=== PATIENT | female | born 1950 | race Caucasian/White ===

== ENCOUNTER 2022-06-28 07:52 | Outpatient (CLI) | payer MEDICARE, BC, SELFPAY | END 2022-06-28 07:53 | disposition home or self-care (01) | PROVIDERS: PCP Family Medicine; Visit Provider Family Medicine | DX: M54.16 Radiculopathy, lumbar region (principal); M51.36 Other intervertebral disc degeneration, lumbar region | CPT/HCPCS: 64483; J1100; Q9966 ==

== ENCOUNTER 2024-01-01 06:33 | Day surgery (SDC) | payer MEDICARE, BC, SELFPAY ==
[2024-01-01] VITALS (7 sets, daily range): BP systolic 122–146; BP diastolic 55–65; PULSE 66–77; RESP 16–18; TEMP 36.4–36.6; O2SAT 97–100; BMI 28.6
[2024-01-01] MEDS: BUPIVACAINE 0.5% 30 ML INJECTION (06:55)
[2024-01-01] MEDS: ETHYL CHLORIDE 1 APPLICATION 1 APPLIC TOPICAL (06:55)
--- NOTE | 2024-01-01 07:41 | SUR.PREOP ---
SAME DAY SURGERY LOCAL INJECTION SITE VERIFICATION WAS PERFORMED BY SURGEON/PA AND PATIENT PRIOR TO LOCAL ANESTHETIC BEING INJECTED TO OPERATIVE SITE.
[2024-01-01] MEDS: BACITRACIN OINTMENT BULK TUBE 1 APPLIC TOPICAL (07:45)
--- NOTE | 2024-01-01 08:00 | P.ORPRC_ITS ---
Procedure Note Date of procedure: 01/01/24 Procedure: PREOPERATIVE DIAGNOSIS: 1. Right carpal tunnel syndrome POSTOPERATIVE DIAGNOSIS: 1. Right carpal tunnel syndrome PROCEDURE: 1. Right open carpal tunnel release SURGEON: Rick Curiel MD. UTILITIES ESTIMATOR AND DRAFTER: Amalia Montoya PA-C ANESTHESIA: Local anesthetic (50:50 mixture of 1% lidocaine with epi and 0.5% marcaine plain) - 10ml total IMPLANTS: None EBL: 2 mL TOURNIQUET: None COMPLICATIONS: None evident INDICATIONS: The patient is a pleasant 73-year-old female who has experienced right hand numbess/tingling affecting the radial 3.5 digits for multiple months. It has progressively gotten worse. Nonoperative management has been tried and failed, and therefore surgery was recommended. DESCRIPTION OF PROCEDURE: Following a thorough discussion of risks, benefits, and alternatives consent was obtained and the operative extremity was marked. The patient was brought to the operating room and placed supine on the operating table. Local anesthesia induction was undertaken in preop holding. No antibiotics were administered as this was planned to be a local case only. Proper time-out was performed identifying proper patient, site, and procedure. The operative extremity was prepped and draped in the appropriate sterile fashion using ChloraPrep. An incision was made in line with the radial border of the ring finger beginning 1 cm distal to the distal wrist crease and progressing for another 2.5cm distal. Caution was taken to stay proximal to Zamarripa's cardinal line. Sharp incision through the skin, subcutaneous tissue, and palmar fascia was performed. The thenar musculature was bluntly elevated off the transverse carpal ligament. The ligament was directly visualized, and divided sharply with a 15 blade. This was released from its most proximal to the most distal extent. Metzenbaum scissor was also utilized to release the fascia extension proximally. We confirmed complete release of the transverse carpal ligament. Closure was performed with 4-O nylon in interrupted fashion. Soft dressings were applied, and the patient was transferred to the recovery room in stable condition. PLAN: 1. Encourage elevation of the operative extremity. 2. Range of motion of the fingers and hand/wrist as tolerated. 3. Ibuprofen/acetaminophen and/or oxycodone as needed for pain control. 4. Follow up with PA visit or nurse visit in 12-16 days for wound check and suture removal.
== END 2024-01-01 08:07 | disposition home or self-care (01) ==
PROVIDERS: PCP Family Medicine; Visit Provider Orthopaedic Surgery Sports Medicine
PROC: (CPT 64721; principal; 2024-01-01 07:30)
DX: G56.01 Carpal tunnel syndrome, right upper limb (principal)
CPT/HCPCS: 64721; J0665

== ENCOUNTER 2024-02-06 08:25 | Outpatient (CLI) | payer MEDICARE, BC, SELFPAY | END 2024-02-06 08:26 | disposition home or self-care (01) | LOC: INJ CL 08:26 | PROVIDERS: PCP Family Medicine; Visit Provider Family Medicine | DX: M54.16 Radiculopathy, lumbar region (principal); M51.36 Other intervertebral disc degeneration, lumbar region | CPT/HCPCS: 64483; J1100; Q9966 ==

== ENCOUNTER 2024-05-07 08:03 | Outpatient (CLI) | payer MEDICARE, BC, SELFPAY | END 2024-05-07 08:04 | disposition home or self-care (01) | LOC: INJ CL 08:03 | PROVIDERS: PCP Family Medicine; Visit Provider Family Medicine | DX: M54.16 Radiculopathy, lumbar region (principal); M51.369 Other intervertebral disc degeneration, lumbar region without mention of lumbar back pain or lower extremity pain | CPT/HCPCS: 64483; 64484; J1100; Q9966 ==

== ENCOUNTER 2025-03-19 21:00 | Emergency (ER) | payer MEDICARE, BC, SELFPAY ==
[2025-03-19] VITALS (23 sets, daily range): BP systolic 124–159; BP diastolic 68–92; PULSE 79–109; RESP 12–19; TEMP 36.6; O2SAT 93–98; BMI 28.3
--- OUTSIDE RECORDS SUMMARY | 2025-03-19 21:02 | XMS_ITS | Clinical Summary ---
Author Organization [facility] Address [address] , [address] [place] [address] Phone Care Team Providers Care Steel Checker Name Role Phone [facility] Unavailable Unava ilable Conditions or Problems Problem Name Problem Code Onset Date Status Entry Date Provider Comment Standard Description Annotate Tingling, hand of Rt side [id number] (SNOMED CT) Active Jean Claude Negron MD Tingling of skin Medications No information available. Medications Administered No information available. Allergies, Adverse Reactions, Alerts No information available. Results Date Name Value Unit Range Flag Description Internal Other: Authorizatio n - OBS [email or web address] Yes Authoriza tion: Release of Information - Authorize [facility] - Payment and Healthcare Operations ROIAUTHOTHER Yes Authoriz ation: Release of Information - Authorize Others/Insurance - Payment and Healthcare Operations HIECONSENT Yes Consent To Release information to the Health Information Exchange (HIE) [email or web address] Yes Authorizat ion: Authorization for [facility] to leave messages, voicemail, send text messages, send emails AUTHRELHCARE Yes Authoriz ation: Release/Retrieval of Information to/from Healthcare Facilities, Pharmacy Benefit Payers and Providers AUTHPRIVPRAC Yes Authoriz ation: Notice of privacy practices AUTHBENEFIT Yes Authoriza tion: Assignment of Benefits and Payment Agreement Plan of Care No information available. Procedures Code Procedure Name Date Entry Date CPT-94077 Nerve Conduction 5-6 studies CPT-28832 EMG with NCS (5+ muscles) - 1 limb 12/0731 Vital Signs No information available. Immunizations No information available. Advance Directives No information available.
--- OUTSIDE RECORDS SUMMARY | 2025-03-19 21:03 | XMS_ITS | Clinical Summary ---
Author Organization [facility] Address [address] [place] [id number] Care Team Providers Care Police Patrol Lieutenant Name Role Phone Elissa Quezada MD Primary Care Provide r Allergies Active Allergy Reactions Criticality Noted Date Comments Dust Mites Other - Describe In Comment Field 06/18/2008 Nasal congestion Mold Extracts Other - Describe In Comment Field 06/18/2008 Nasal congestion Oxycodone-Acetaminoph en Nausea Only 05/12/2020 Medications cholecalciferol (VITAMIN D) 1,000 unit capsuleIndication s:Vitamin D deficiency Take 2 capsules by mouth once daily. 0 07/26/19 17 Active Blood Pressure Monitor KitIndications:HT N (hypertension) Automatic arm cuff, large adult cuff Frequency of testin-3 times per week 1 Each 05/10/20 22 Active blood-glucose meterIndications: Type 2 diabetes mellitus with complication, without long-term current use of insulin (HC) Test once daily. Dispense meter, test strips, lancets covered by pt ins. E11.8 1 Each 11/14/19 24 Active multivitamin (MVI) tablet Take 1 Tablet by mouth once daily. 03/13/20 24 Active medication order composer Colace as needed 03/13/20 24 Active medication order composer Magnesium supplement 03/13/20 24 Active aspirin (ECOTRIN) 81 mg enteric coated tabletIndications :H/O TIA (transient ischemic attack) and stroke Take 1 Tablet (81 mg) by mouth once daily with a meal. 07/08/20 24 Active gabapentin 100 mg capsuleIndication s:Lumbar radiculopathy TAKE ONE CAPSULE (100MG) BY MOUTH TWICE A DAY NEEDED FOR NERVE PAIN DURING THE DAY IN ADDITION TO THE 600MG AT BEDTIME 60 Capsule 11/30/19 Active sennosides-docusa te (8.6-50 mg) tabletIndications :Chronic constipation Take 1 Tablet by mouth once daily if needed for Constipation. 90 Tablet 11/29/19 Active atorvastatin 40 mg tabletIndications :Diabetes mellitus without complication (HC) Take 1 Tablet (40 mg) by mouth once daily. 90 Tablet 11/29/19 Active metFORMIN 500 mg tabletIndications :Type 2 diabetes mellitus with complication, without long-term current use of insulin (HC) Take 2 Tablets (1,000 mg) by mouth two times daily with meals. 360 Tablet 11/29/19 Active semaglutide (Ozempic) 2 mg/dose (8 mg/3 mL) subcutaneous penIndications:Co ntrolled type 2 diabetes mellitus without complication, without long-term current use of insulin (HC) Inject 2 mg subcutaneous once weekly. 3 mL 11/29/19 Active Blood Sugar Diagnostic, Disc stripIndications: Diabetes mellitus without complication (HC) As directed. Test 1 times per day 100 Each 11/29/19 Active lisinopriL 40 mg tabletIndications :HTN (hypertension) Take 1 Tablet (40 mg) by mouth once daily. 90 Tablet 11/29/19 Active hydroCHLOROthiazi de 12.5 mg tabletIndications :HTN (hypertension) Take 1 Tablet (12.5 mg) by mouth once daily. 90 Tablet 11/29/19 Active lancetsIndication s:Type 2 diabetes mellitus without complication, with long-term current use of insulin (HC) As directed. Test 1 times per day. 100 Each 11/30/19 Active gabapentin 600 mg tabletIndications :Lumbar radiculopathy Take 1 Tablet (600 mg) by mouth at bedtime. 30 Tablet 12/17/19 Active blood sugar diagnostic (Contour Next Test Strips) stripIndications: Type 2 diabetes mellitus without complication, with long-term current use of insulin (HC) Dispense item covered by pt ins. E11.9 NIDDM type II - Test 1 time/day 100 Each 01/23/20 25 Active ketoconazole 2 % creamIndications: Tinea pedis, unspecified laterality Apply topically to affected area(s) two times daily. 60 g 2 01/21/20 25 Active cyclobenzaprine (FLEXERIL) 10 mg tabletIndications :Back spasm Take 1 Tablet (10 mg) by mouth 3 times daily if needed for Muscle Spasm. 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 Type II or unspecified type diabetes mellitus without mention of complication, not stated as uncontrolled 09/15/2006 Other and unspecified hyperlipidemia 09/15/2006 Depressive disorder, not elsewhere classified Resolved Problems Problem Noted Date Diagnosed Date Resolved Date Disturbance of skin sensation 03/20/2008 11/10/2015 Headache(784.0) 09/15/2006 11/10/2015 Encounters Date Type Department Care Team Description 03/19/2025 Travel 03/18/2025 Telephone [facility] [address] [place], [place] [id number] Elissa Quezada MD Medication Management (cyclobenzaprine (FLEXERIL) 10 mg ) 02/06/2025 11:00 AM CDT Procedure Only Counts Include [facility] [address] [address] Jaelyn Dubois MD Derm Problem 02/06/2025 Travel 02/01/2025 Travel 01/30/2025 12:00 PM CDT Office Visit [address] [phone] Jairo White MD Procedure (Lesion removal - left ear) 01/30/2025 Telephone [facility] [address] [place] [address] Jairo White MD Pharmacist Medication Management (NEOMYCIN) 01/30/2025 Travel 01/27/2025 10:40 AM CDT Office Visit [facility] [address] [place] [address] Leon Dorsey MD Musculoskeletal Problem (Follow up back and right leg pain) 01/27/[address] [address] Jaelyn Dubois MD Appointment (DERM); Diabetes (Jerrod nordisk) 01/27/2025 Telephone [facility] [address] [place] [address] Elissa Quezada MD Concerns 01/27/2025 Travel 01/25/2025 Travel 01/23/2025 2:15 PM CDT Office Visit [address] [phone] Jairo White MD Consult (Skin lesion of left ear / Decreased hearing of /both ears /) 01/23/2025 1:00 PM CDT Office Visit [address] [phone] Trini Catherine AuD Hearing Problem (Hearing test - deferred) 01/23/2025 Telephone Counts Include [facility] [address] [address] Jaelyn Dubois MD Abnormal Lab Results 01/20/2025 10:30 AM CDT Office Visit [address] [address] Jaelyn Dubois MD Derm Problem 01/20/2025 Travel 01/20/2025 Refill [facility] [address] [place] [address] Elissa Quezada MD Refill Request 01/18/2025 Travel 01/15/2025 Travel from Last 3 Months Immunizations Immunization Administration Dates Next Due COVID-19 VACCINE SPIKEVAX (M ODERNA 50MCG/0.5ML) 12YO+ PFS 10/28/2023,04/24/2023 COVID-19 vaccine (Moderna 10 0mcg/0.5mL) PF, MDV 05/11/2021,10/08/2020,09/10/2020 Hepatitis A (Adult) 09/24/2009,08/28/2008 Hepatitis B (Adult) 06/13/1989,01/13/1989,1988 Influenza A (H1N1), Inactivated 05/20/2009 Influenza A (H1N1), Inactiva beni (Age >=3 Years) 05/08/2010,05/10/2009 Influenza RIV4 (Age 18+ Year s) PRESERV FREE 05/16/2019 Influenza Virus, Unspecified 05/07/2012,04/25/20 11,05/17/2010 Influenza, High-dose Inactivated 04/23/2017,04/09,05/07/2015 Influenza, High-dose Quadriv alent Inactivated 04/24/2021 Influenza, IIV3 (Age 6-35 mos) 04/24/2013 Influenza, IIV3 (Age >=3 years) 05/10/2014,04/24,04/07/2009 Influenza, IIV4 04/21/2016 Influenza, Inactivated AIIV4 (Age 65+ Years) Preserv Free 04/25/2022,05/08/2020 Influenza, Inactivated IIV3 (Age 65+ Years) Preserv Free 05/24/2024,05/04/2018 Pneumococcal Poly,23-Valent (Pneumovax) 10/26/19 17,08/28/2008,11/21/1994 Pneumococcal conj 13-Valent (Prevnar 13) 015 RSV, Recombinant ADJ Reconst ituted (Arexvy 120MCG/0.5mL) 06/10/2024 Td (Age >=7 Years) 01/27/2004 Tdap 10/30/2022,10/15/2012 10/11/2022 Typhoid (injectable) 11/18/2005 Zoster (Shingrix-RZV, recombinant) 01/25/2023, Zoster (Zostavax-ZVL, live) 02/01/2012 Family History Medical History Relation Name Comments Diabetes Father Heart Disease Father [place] age 54 Hyperlipidemia Father Diabetes Mother Cancer Other cousin Cancer Sister 1 cervical Diabetes Sister 2 Age 54 Cancer-breast No Family History Cancer-ovarian No Family History Relation Name Status Comments Father Mother Other Sister 1 Sister 2 Social History Tobacco Use Types Packs/Day Years Used Date Smoking Tobacco: Former Cigarettes 1 12 0 07/10/1971 - 07/10/1983 Passive Smoke Exposure: Past Smokeless Tobacco: Never Tobacco Cessation:Counseling Given: Yes Alcohol Use Standard Drinks/Week Comments Yes 0 (1 standard drink = 0.6 oz pur e alcohol) 1 X /month or social occasions PHQ-2 Answer Date Recorded PHQ-2 TOTAL SCORE 0 11/28/2024 Social Connections Answer Date Recorded Do you often feel lonely or isolated from those around you? 0 11/28/2024 Financial Resource Strain Answer Date R ecorded Difficulty of Paying Living Expenses 3 11/28/2024 Difficulty of Paying Living Expenses Not on file 11/28/2024 Food Insecurity Answer Date Recorded Do you worry your food will run out before you are able to buy more? 1 11/28/2024 Transportation Needs Answer Date Record ed Does lack of transportation keep you from medica l appointments? 1 11/28/2024 Does lack of transportation keep you from work, meetings or getting things that you need? 1 11/28/2024 Housing Stability Answer Date Recorded What is your housing situation today? 1 11/28/2024 Utilities Answer Date Recorded Do you have trouble paying f or utilities (for example, heat, electricity, water, phone)? 1 11/28/2024 Comments No Sex and Gender Information Value Date Recorded Sex Assigned at Not on file Legal Sex Female 5:27 AM CCNP Gender Identity Not on file Sexual Orientation Not on file Occupation Industry Job Start Date Job End Date Not on file Not on file Not on file Not on file Obstetrics History Para Term AB IAB SAB Ectopic Multiple Livin g Live Births 3 3 3 3 Date Outcome GA Total Labor Labor/2nd/3rd Weight Sex Type Anes PTL Carol Ann A1 A5 Name Clin Term Term Term Last Filed Vital Signs Vital Sign Reading Time Taken Comments Blood Pressure 114/68 01/27/2025 10:47 AM CDT Pulse 69 01/27/2025 10:47 AM CDT Temperature 36.7 C (98.1 F) 01/27/2025 10:47 AM CDT Respiratory Rate 18 05/18/2020 4:14 PM CCNP Oxygen Saturation 99% 01/27/2025 10: 47 AM CDT Inhaled Oxygen Concentration - - Weight 78.3 kg (172 lb 9.6 oz) 01/28/20 10:47 AM CDT sandals on Height 165.1 cm (5' 5) 11/28/2024 2:02 PM CDT Body Mass Index 28.72 11/28/2024 2:02 PM CDT Plan of Treatment Upcoming Encounters Date Type Department Care Team (Late st Contact Info) Description 03/21/2025 8:25 AM CDT Office Visit [facility] [address] [place] [address] Elissa Quezada MD [address] [place] [address] 04/03/2025 1:30 PM CDT Office Visit [address] [phone] Jairo White MD [address] [facility] [address] [place] [address] 07/23/2025 11:00 AM CCNP Office Visit Counts Include [facility] At [facility] [address] [phone] [place] [address] [place] [address] Health Maintenance Due Date Last Done Comments Hepatitis C screening for ag e 18-79 11/13/1968 Influenza Vaccine (#1) 2025 4, 04/25/2022, 05/08/2020, Additional history exists BMI (ht and wt on same day) for age 18+ 11/28/2025 11/28/2024, 03/28/2024, 01/18/2024, Additional history exists Depression screening for age 12+ 11/28/2025 11/28/2024, 11/16/2023, 11/14/2023, Additional history exists Medicare Wellness for age 65+ 11/29/2025, 11/14/2023, 11/08/2022, Additional history exists Colonoscopy through age 75 09/06/202609/06, 09/06/2019, 09/02/2014, Additional history exists Lipids for age 45-75 11/28/2029 11/28/2024, 11/14/2023, 11/04/2022, Additional history exists Tetanus booster 10/30/2032 10/30/2022, 04/02/2013, 01/27/2004 Hepatitis B series for 19+ Completed 06/13, 01/13/1989, 12/12/1988 DEXA/DXA scan for age 65+ Completed 08/01/2016 Pneumococcal series for age 50+ Completed 10/25/2016, 05/07/2015, 08/28/2008, Additional history exists Zoster (shingles) series for age 50+ Completed 01/25/2023, 08/09/2022, 02/01/2012 RSV vaccine for adults or Completed 06/10/2024 COVID-19 vaccine series Completed 01/24/20, 04/17/2024, 10/28/2023, Additional history exists Medical Devices Implanted Type Area Filemaker Developer Device Identifier Shelf Expiration Date Model / Serial / Lot [id number] Matrix 3cc Damian Dbf Putty Dbm Implanted:Qty: 1 on 05/13/2020 by Damián Nair MD at [facility] Explanted:at [facility] (Quantity not on file) N/A: Spine Medtronic Spine/Ortho 02/18/2022 [id number] / [id number] / [id number] ne 1-4mm 30cc Medtronic Chips Canclls Freeze Dried Implanted:Qty: 1 on 05/13/2020 by Damián Nair MD at [facility] Explanted:at [facility] (Quantity not on file) N/A: Spine Medtronic Spine/Ortho 11/06/2024 [id number] / [id number] / [place] Lmbr 40x5.5mm Vitality Cvd Titnm - [id number] Implanted:Qty: 2 on 05/13/2020 by Damián Nair MD at [facility] N/A: Spine Ori Biomet Spine [id number] 05# / / Spacer Lmbr [id number] Zyston Convex Stra Plif - [id number] Implanted:Qty: 1 on 05/13/2020 by Damián Nair MD at [facility] N/A: Spine Ori Biomet 07/09/2025 [id number] / / [id number] Set Screw Lmbr 5.5-6mm Vitality Torque - [id number] Implanted:Qty: 4 on 05/13/2020 by Damián Nair MD at [facility] N/A: Spine Ori Biomet Spine [id number] 01# / / Screw Vital Polyaxial [id number] Implanted:Qty: 4 on 05/13/2020 by Damián Nair MD at [facility] N/A: Spine [id number] / / Description:SCREW VITAL POLY AXIAL [id number] Procedures Procedure Name Priority Date/Time Associated Diagnosis Comments PATH TISSUE EXAM Routine 02/06/2025 11:0 0 AM CDT Basal cell carcinoma (BCC) of skin of right upper extremity including shoulder PATH TISSUE EXAM Routine 01/30/2025 12:2 4 PM CDT Lesion of ear canal PATH TISSUE EXAM Routine 01/20/2025 10:5 0 AM CDT Neoplasm of uncertain behavior LIPID PANEL W REFLEX MEASURED LDL Routine 11/28/2024 3:00 PM CDT Type 2 diabetes mellitus with complication, without long-term current use of insulin (HC) COLONOSCOPY 09/06/2019 9:23 AM CCNP XR DXA BONE DENSITY 2 SITES AXIAL Routine 08/01/2016 2:21 PM CCNP Asymptomatic postmenopausal state from Last 3 Months or Most Recently Relevant to Health Maintenance Results * PATH TISSUE EXAM (02/06/2025 11:00 AM CDT) Only the most recent of3 resultswithin the time period is included. Case Report Pathology Report Case: [id number] Authorizing Provider: Jaelyn Dubois MD Collected: 02/06/2025 1100 Ordering Location: Counts Include [facility] Received: 02/06/2025 [facility] Pathologist: Mazin Barajas Jr., MD Specimen: Skin, right upper arm 02/11/2025 10:41 AM CDT [facility] Final Diagnosis SKIN, RIGHT UPPER ARM, RE-EXCISION: 1. Changes of prior biopsy 2. No residual carcinoma identified 02/11/2025 10:41 AM CDT [facility] at 1041 CDT Clinical Information Re-excision of BCC ([id number]) 02/11/2025 10:41 AM CDT [facility] Gross Description A) Received in formalin, labeled with the patient's name and right upper arm, is a 2.2 x 1.2 x 0.6 cm un-oriented skin ellipse. There is a 0.6 x 0.6 cm pale-irby scar, 0.3 cm from the nearest peripheral skin edge. The specimen is inked orange, is serially sectioned and entirely submitted: 1. Tips 2-3. Mid cross-sections [facility] 02/07/2025 02/11/2025 10:41 AM CDT [facility] Microscopic Description The final diagnosis is based on microscopic examination of appropriate sections of all specimens. The presence of orange ink is confirmed on tissue sections. 02/11/2025 10:41 AM CDT [facility] Additional Information Interpreted at [facility] - [address], [place] [address] 02/11/2025 10:41 AM CDT [facility] Other SPECIMEN FROM SKIN / Unknown Non-Blood / Unknown 02/06/2025 11:00 AM CDT 02/06/2025 3:01 PM CDT us Jaelyn Dubois MD PATHOLOGY/CYTOLOGY Final Result [facility] [address] [place] [address], [place] * (ABNORMAL) LIPID PANEL W REFLEX MEASURED LDL (11/28/2024 3:00 PM CDT) CHOLESTEROL, TOTAL 155 <200 mg/dL [facility] HDL CHOLESTEROL 52 > OR = 50 mg/dL [facility] TRIGLYCERIDES 157(H) <150 mg/dL [facility] LDL-CHOLESTEROL 78 mg/dL (calc) [facility] Comment: Reference range: <100 Desirable range <100 mg/dL for primary prevention; <70 mg/dL for patients with CHD or diabetic patients with > or = 2 CHD risk factors. LDL-C is now calculated using the Hermes-Spring calculation, which is a validated novel method providing better accuracy than the Friedewald equation in the estimation of LDL-C. Hermes JIMENEZ et al. JEFFREY. 2013;310(19): 2974-3149 (http://education.[employer].Votigo/faq/VTU543) CHOL/HDLC RATIO 3.0 <5.0 (calc) [facility] NON HDL CHOLESTEROL 103 <130 mg/dL (calc) [facility] Comment: For patients with diabetes plus 1 major ASCVD risk factor, treating to a non-HDL-C goal of <100 mg/dL (LDL-C of <70 mg/dL) is considered a therapeutic option. Blood BLOOD SPECIMEN / Unknown 11/28/2024 3:00 PM CDT 11/28/2024 3:02 PM CDT Narrative [facility] - 11/29/2024 3:19 AM CDT FASTING:NO FASTING: NO Elissa Quezada MD CHEMISTRY Final Result [facility] [address] [place] [address], [place] [phone] [facility] [address] [place] [address] * COLONOSCOPY (09/06/2019 9:23 AM CCNP) 09/06/2019 9:23 AM CCNP Narrative Transcriptions Hermes Salmon MD - 09/06/2019 10:34 AM CST Patient Name: Simran Aburto Procedure Date: 09/06/2019 Gender: Female Date of : 1950 Admit Type: Outpatient Procedure: Colonoscopy Proceduralist: Hermes Salmon MD , Renetta Curran RN (Nurse), Catarina Irby (Nurse) Indications/Pre-Op Diagnosis: Surveillance: Personal history ofadenomatous polyps on last colonoscopy 5 years ago, Last colonoscopy: August 2014 Medications: Fentanyl 150 micrograms IV, Midazolam 4 mgIV Procedure Description: The patient had risks, benefits and alternatives explained to andgave informed consent. The patient had a stable cardiopulmonary status and judged an adequate candidate for conscious sedation. The Colon -80DC [id number] was passed through the anus and advancedto the cecum, identified by appendiceal orifice and ileocecal valve. The colonoscopy was performed without difficulty. The patient toleratedthe procedure well. The quality of the bowel preparation was good. The ileocecal valve, appendiceal orifice, and rectum were photographed. Complications: No immediate complications. Estimated Blood Loss & Specimen: Estimated blood loss: none. Specimen collected - Yes and sent to Laboratory Findings: The perianal and digital rectal examinations were normal. Two sessile polyps were found in the ascending colon. The polyps were3 mm in size. These polyps were removed with a hot snare. Resection and retrieval were complete. The colon (entire examined portion) was significantly redundant. The exam was otherwise without abnormality on direct and retroflexion views. Impressions/Post-Op Diagnosis: - Two 3 mm polyps in the ascending colon, removed with a hot snare. Resected and retrieved. - Redundant colon. - The examination was otherwise normal on direct and retroflexionviews. Recommendation: - Patient has a contact number available for emergencies. The signsand symptoms of potential delayed complications were discussed with the patient. Return to normal activities tomorrow. Written discharge instructions were provided to the patient. - Resume previous diet. - Continue present medications. - Await pathology results. - Repeat colonoscopy in 7 years for surveillance. Moderate Sedation: Moderate (conscious) sedation was administered by the endoscopy nurse and supervised by the endoscopist. The following parameters were monitored: oxygen saturation, heart rate, respiratory rate, blood pressure, adequacy of pulmonary ventilation and reponse to care. [facility] flow[facility] and nursing notes for moderate sedation details. Total physician intraservice time was 34 minutes. Hermes Salmon MD 09/06/2019 10:34:27 AM This report has been signed electronically. Note Initiated On: 09/06/2019 9:23 AM Procedure Code(s): --- Professional --- 60010, Colonoscopy, flexible; with removalof tumor(s), polyp(s), or other lesion(s) bysnare technique Diagnosis Code(s): --- Professional --- Z86.010, Personal history of colonicpolyps D12.2, Benign neoplasm of ascending colon Q43.8, Other specified congenitalmalformations of intestine CPT copyright 2018 [employer]. All rights reserved. The codes documented in this report are preliminary and upon grommet machine operator reviewmay be revised to meet current compliance requirements. Scope In: 9:57:11 AM Scope Withdrawal Time 0 hours 7 minutes 35 seconds Scope Out: 10:28:03 AM us Hermes Salmon MD PROCEDURE ORD Final Res ult * XR DXA BONE DENSITY 2 SITES AXIAL (08/01/2016 2:21 PM CCNP) Anatomical Region Laterality Modality Spine, HIPS, HIPL, HIPR Other Narrative 08/08/2016 11:04 AM CCNP Please see scanned document for results of this study. us Elissa Quezada MD DEXA Final Result from Last 3 Months or Most Recently Relevant to Health Maintenance Insurance [place] BLUE HB ONLY MEDICARE PART A HB ONLY BLUE [place] BLUE MR PB ONLY MEDICARE PART B HB [place] [address] CALVIN MENDEZ Advance Directives Documents on File Type Date Recorded Patient Graphotype Operator Expl anation Healthcare Directive 06/15/2017 017 * Full Code (Latest Code Status on File) Date Activated Date Inactivated Comments 05/13/2020 11:54 PM 05/18/2020 8:43 PM Question Answer Comments Code Status Discussion: Discussed Care Teams Police Patrol Lieutenant Relationship Specialty Start Date End Date Elissa Quezada MD [address] [place] [address] PCP - General Family Practice 06/09/14
--- NOTE | 2025-03-19 21:27 | CRLHL7_ITS ---
For Patients: As a result of the Cures Act, medical imaging exams and procedure reports are released immediately into your electronic medical record. You may view this report before your referring provider. If you have questions, please contact your health care provider. Indication: Shoulder pain Technique: Two views of the chest Comparison: None Findings/Impression: Suspected basilar scarring with no acute cardiopulmonary process detected. Dictated by Ricardo Hare MD @ 03/19/2025 10:41:15 PM (Electronically Signed)
--- OUTSIDE RECORDS SUMMARY | 2025-03-19 21:34 | XMS_ITS | Clinical Summary ---
Author Organization [facility] Address [address] , [address] [place] [address] Phone Care Team Providers Care Commissioning Engineer Name Role Phone [facility] Unavailable Unava ilable Conditions or Problems Problem Name Problem Code Onset Date Status Entry Date Provider Comment Standard Description Annotate Tingling, hand of Rt side [id number] (SNOMED CT) Active Jean Claude Negron MD [...] Procedures Code Procedure Name Date Entry Date CPT-62752 Nerve Conduction 5-6 studies CPT-37011 EMG with NCS (5+ muscles) - 1 limb 12/0731 Vital Signs No information available. Immunizations No information available. Advance Directives No information available.
--- NOTE | 2025-03-19 21:41 | ED.GENADULT ---
HPI - General Adult General Chief complaint: Neck Injury/Pain Stated complaint: L shoulder/neck pain Time Seen by Provider: 03/19/25 21:16 Source: patient Mode of arrival: ambulatory Limitations: no limitations History of Present Illness HPI narrative: 74-year-old female presenting today with neck pain. She states that it started yesterday. Friend came over and gave her massage which she felt helped a little bit. Same friend gave her another massage today and she felt significantly worse afterwards. The pain started on the top of the left shoulder but now radiates across the chest wall into the left neck and into the left back. Nothing seems to make it better or worse. Moving her arm does not change her pain. Moving the neck really does not change the pain very much either. She states that she has felt nauseated and sweaty today because of the discomfort. She denies feeling short of breath. She has not been coughing. She denies recent illness. She does not have a headache. She denies any focal neurologic deficits. No vision changes or hearing changes. She denies any rashes. Related Data Home Medications ?Medication ?Instructions ?Recorded ?Confirmed aspirin 325 mg tablet 325 mg PO QDAY 12/26/23 01/16/24 atorvastatin 40 mg tablet 40 mg PO DAILY 12/26/23 01/16/24 docusate sodium 100 mg capsule 100 mg PO QDAY 12/26/23 01/16/24 (Colace) lisinopril 40 mg tablet 40 mg PO DAILY 12/26/23 01/16/24 magnesium oxide 400 mg PO QDAY 12/26/23 01/16/24 metformin 500 mg tablet mg PO 12/26/23 01/16/24 multivitamin (Multiple Vitamins 1 tab PO QDAY 12/26/23 01/16/24 tablet) pioglitazone 15 mg tablet 15 mg PO DAILY 12/26/23 01/16/24 psyllium husk 0.4 gram capsule 0.4 g PO QDAY 12/26/23 01/16/24 (Metamucil) semaglutide 2 mg/dose (8 mg/3 mL) 2 mg subcut 12/26/23 01/16/24 subcutaneous pen injector (Ozempic) torsemide 5 mg tablet 5 mg PO DAILY 12/26/23 01/16/24 Previous Rx's ?Medication ?Instructions ?Recorded oxycodone 5 mg tablet 5 mg PO Q4-8H PRN pain #5 tabs 01/01/24 Allergies Allergy/AdvReac Type Severity Reaction Status Date / Time No Known Drug Allergies Allergy Verified 05/07/24 08:56 Review of Systems Status of ROS: Reports: 10 or more systems reviewed and unremarkable except as noted in History and below [facility] Medical History Hyperlipidemia ?E78.5 - Hyperlipidemia, unspecified (ICD-10) Type 2 diabetes mellitus ?E11.9 - Type 2 diabetes mellitus without complications (ICD-10) Surgical History History of carpal tunnel surgery of right wrist (01/01/24) ?Z98.890 - Other specified postprocedural states (ICD-10) History of spinal fusion (05/13/20) ?Z98.1 - Arthrodesis status (ICD-10) Status post arthroscopic partial medial meniscectomy of right knee (01/31/07) ?Z98.890 - Other specified postprocedural states (ICD-10) ?Z87.828 - Personal history of other (healed) physical injury and trauma (ICD-10) History of cataract extraction (2015) ?Z98.49 - Cataract extraction status, unspecified eye (ICD-10) H/O tubal ligation ?Z98.51 - Tubal ligation status (ICD-10) 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) ?Z96.651 - Presence of right artificial knee joint (ICD-10) H/O umbilical hernia repair (1983) ?Z98.890 - Other specified postprocedural states (ICD-10) ?Z87.19 - Personal history of other diseases of the digestive system (ICD-10) Family History Father Diabetes High cholesterol Myocardial infarction, Onset Age: 54 Mother Diabetes Sister Diabetes Social History Narrative: former smoker-Quit 1983 Smoking Status: Former smoker What tobacco products do you use: cigarettes Smoking quit date/years: >15 years ago Do you use any of these nicotine containing products: None Second hand tobacco smoke exposure: No How often do you have a drink containing alcohol: never AUDIT-C Alcohol total score: 0 Non-prescribed substance use: denies use Exam Narrative: Exam Narrative: Well-nourished well-developed patient, somewhat uncomfortable. Alert and oriented. Answers questions appropriately. Mood and affect are appropriate. Thoughts are goal oriented and rational. No tangential or magical thinking noted. Patient speaks in full sentences without needing to catch her breath. HEENT: Normocephalic atraumatic. Pupils are equally round reactive to light. Extraocular muscles are intact. Conjunctivae are moist without any icterus noted. Moist mucous membranes. Posterior pharynx is normal. Neck is soft without any lymphadenopathy or thyromegaly. No masses are appreciated. Cardiovascular: Heart is regular rate and rhythm S1 and S2 are present without any murmurs. Lungs: Clear to auscultation bilaterally no wheezes rhonchi or rales are appreciated. Patient takes deep breaths without any discomfort. Extremities: No tenderness over the shoulders. She has full range of motion at the shoulder without increasing pain or changes to her pain. Skin: Well perfused without any obvious rashes. Back: Has normal appearance. There is no rash visualized. Patient has tenderness right around the T1. No significant paraspinal muscular tenderness. She has no tenderness over the trapezius or shoulder joint. No tenderness of the cervical spine. She has full range of motion at the neck with flexion, as extension, side way bending and rotation without significant discomfort. Const: Vital Signs, click to edit/add: Vital Signs - 24 hr 03/19/25 21:03 03/19/25 22:07 03/19/25 22:09 Temperature 98 F Pulse Rate 91 Pulse Rate [Pulse Oximeter] 85 Respiratory Rate 16 16 14 Blood Pressure 159/81 H Blood Pressure [Ri ght Upper Arm] 145/82 H Pulse Oximetry 96 95 Oxygen Delivery Me thod Room Air Oxygen Flow Rate 03/19/25 22:11 03/19/25 22:15 03/19/25 22:16 Temperature Pulse Rate 92 109 H 98 Pulse Rate [Pulse Oximeter] Respiratory Rate 19 16 14 Blood Pressure 150/92 H 133/76 Blood Pressure [Ri ght Upper Arm] Pulse Oximetry 97 96 93 Oxygen Delivery Me thod Oxygen Flow Rate 03/19/25 22:21 03/19/25 22:26 03/19/25 22:30 Temperature Pulse Rate 89 91 95 Pulse Rate [Pulse Oximeter] Respiratory Rate 16 16 12 Blood Pressure 141/74 H 135/83 Blood Pressure [Ri ght Upper Arm] Pulse Oximetry 94 93 93 Oxygen Delivery Me thod Oxygen Flow Rate 03/19/25 22:31 03/19/25 22:36 03/19/25 22:41 Temperature Pulse Rate 93 92 91 Pulse Rate [Pulse Oximeter] Respiratory Rate 16 16 17 Blood Pressure 139/73 130/75 136/79 Blood Pressure [Ri ght Upper Arm] Pulse Oximetry 95 96 97 Oxygen Delivery Me thod Oxygen Flow Rate 03/19/25 22:46 03/19/25 22:51 03/19/25 22:56 Temperature Pulse Rate 83 91 86 Pulse Rate [Pulse Oximeter] Respiratory Rate 12 14 13 Blood Pressure 135/76 140/83 H 129/70 Blood Pressure [Ri ght Upper Arm] Pulse Oximetry 98 98 97 Oxygen Delivery Me thod Oxygen Flow Rate 03/19/25 23:01 03/19/25 23:07 03/19/25 23:11 Temperature Pulse Rate 83 84 85 Pulse Rate [Pulse Oximeter] Respiratory Rate 17 16 15 Blood Pressure 133/74 132/68 133/75 Blood Pressure [Ri ght Upper Arm] Pulse Oximetry 98 98 97 Oxygen Delivery Me thod Nasal Cannula Nasal Cannula Nasal Cannula Oxygen Flow Rate 2 2 2 03/19/25 23:12 Temperature Pulse Rate 83 Pulse Rate [Pulse Oximeter] Respiratory Rate 13 Blood Pressure 133/72 Blood Pressure [Ri ght Upper Arm] Pulse Oximetry 96 Oxygen Delivery Me thod Nasal Cannula Oxygen Flow Rate 2 Course Course ED Course: Things to consider would be acute coronary syndrome, lung mass causing referred pain, diskitis, musculoskeletal pain, shingles. Less likely but not impossible would include pneumonia, pneumothorax, PE. EKG, labs and chest x-ray ordered. Considered doing a CT of the thoracic spine however patient's point of care troponin returned right away quite elevated at 2.14. 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 Pulse 79. At this time aspirin was given, heparin ordered. Sublingual nitro was also given. This did help her pain some. A 2nd sublingual nitro was given and her pain went down to a 2-3/10. Consulted Cardiology at this time recommended a routine transfer given her stability. Patient is a DNR DNI but does want to have a cardiac angiogram done and to be resuscitated on the table if necessary. She does not want prolonged life saving measures however. I had this discussion with both the patient and her daughter. Unfortunately patient's pain did return and she became diaphoretic. At this time we started a nitro drip. Repeat EKG showed inverted T-waves in 2 3 and AVF which were unchanged from her initial EKG. Repeat troponin returned elevated at 2.27. At this time we consult Cardiology once again to update them on the changes. He recommended an expedited level 2 transfer. Patient remained stable as far as blood pressure and pain on the nitro drip. Vital Signs Vital signs: Initial Vital Signs Temperature 98 F 03/19/25 21:03 Temperature Source Temporal Artery Scan 03/19/25 21:03 Pulse Rate 85 03/19/25 21:03 Respiratory Rate 16 03/19/25 21:03 Blood Pressure 145/82 H 03/19/25 21:03 Blood Pressure Mean 103 03/19/25 21:03 Blood Pressure Position Sitting 03/19/25 21:03 Pulse Oximetry 96 03/19/25 21:03 Oxygen Delivery Method Room Air 03/19/25 21:03 Vital Signs Temperature 98 F 03/19/25 21:03 Pulse Rate 85 03/19/25 21:03 Respiratory Rate 16 03/19/25 21:03 Blood Pressure 145/82 H 03/19/25 21:03 Pulse Oximetry 96 03/19/25 21:03 Oxygen Delivery Method Room Air 03/19/25 21:03 Temperature 98 F 03/19/25 21:03 Pulse Rate 83 03/19/25 23:12 Respiratory Rate 13 03/19/25 23:12 Blood Pressure 133/72 03/19/25 23:12 Pulse Oximetry 96 03/19/25 23:12 Oxygen Delivery Method Nasal Cannula 03/19/25 23:12 Oxygen Flow Rate 2 03/19/25 23:12 Medications Administered Medications: Generic Name Dose Route Start Last Admin Trade Name Freq PRN Reason Stop Dose Admin Heparin Sodium/Dextrose 25,000 unit in 500 mls @ 0 mls/hr 03/19/25 22:30 03/19/25 22:27 Heparin IV 900 unit/hr .Q0M LAUREN 18 mls/hr Protocol Administration Per Protocol Nitroglycerin/Dextrose 25,000 mcg in 250 mls @ 3 mls/hr 03/19/25 22:55 03/19/25 23:16 Nitroglycerin/Dextrose IVPB 8.33 mcg/min .TITRATE PRN 5 mls/hr Protocol Titration 5 MCG/MIN Discontinued Medications Generic Name Dose Route Start Last Admin Trade Name Freq PRN Reason Stop Dose Admin Aspirin 324 mg 03/19/25 22:17 03/19/25 22:21 Aspirin 81 Mg Tab.Chew PO 03/19/25 22:18 324 mg ONCE ONE Administration Heparin Sodium (Porcine) 4,000 unit 03/19/25 22:17 03/19/25 22:22 Heparin 5,000 Unit/0.5 Ml Inj IVP 03/19/25 22:18 4,000 unit ONCE ONE Administration Nitroglycerin 0.4 mg 03/19/25 21:58 03/19/25 22:06 Nitroglycerin 0.4 Mg Tab.Subl SUBLINGUAL 03/19/25 21:59 0.4 mg ONCE ONE Administration Medical Decision Making MDM Narrative Medical decision making narrative: 74-year-old female with a non-STEMI - patient will be transferred to [facility] for further management. Lab Data Lab results reviewed: Yes I reviewed the patient's lab results Labs: Lab Results 03/19/25 03/19/25 03/19/25 Range/Units 21:28 21:36 21:40 WBC 11.04 H (4.50-11.00) K/uL RBC 4.15 (4.00-5.20) m/uL Hgb 12.8 (12.0-16.0) gm/dL Hct 38.0 (33.0-51.0) % MCV 92 (80-100) fL MCH 31 (26-34) pg MCHC 34 (32-36) gm/dL RDW Coeff of Edda 12.0 (11.5-15.5) % Plt Count 290 (140-440) K/uL Neut % (Auto) 78.9 H (42.0-72.0) % Lymph % (Auto) 13.9 L (20-44) % [place] % (Auto) 4.7 (0.0-11.0) % Eos % (Auto) 0.9 (0.0-7.0) % Baso % (Auto) 0.5 (0.0-3.0) % Neut # (Auto) 8.70 H (1.7-7.0) K/uL Lymph # (Auto) 1.50 (0.90-2.90) K/uL [place] # (Auto) 0.50 (0.00-0.90) K/UL Eos # (Auto) 0.10 (0.00-0.50) K/uL Baso # (Auto) 0.10 (0.00-0.30) K/uL Abs Immat Gran (auto) 0.10 (0.00-0.30) K/uL Imm/Tot Granulo (auto) 1.1 % ESR 6 (2-20) mm/hr INR (0.91-1.10) APTT (23-33) Seconds D-Dimer Quant (PE/DVT) 0.17 (0.00-0.50) ug/ml Sodium 131 L (135-149) mmol/L Potassium 5.1 (3.6-5.1) mmol/L Chloride 94 L (96-114) mmol/L Carbon Dioxide 30 (20-32) mmol/L Anion Gap 7 (7-15) mEq/L BUN 20 (7-30) mg/dL Creatinine 0.8 (0.5-1.5) mg/dL Estimated Creat Clear 43.74 Estimated GFR 77 ml/min Glucose 260 H (60-115) mg/dL Lactate 1.4 (0.5-1.9) mmol/L Calcium 9.3 (8.4-10.6) mg/dL Total Bilirubin 0.3 (0.1-1.5) mg/dL Direct Bilirubin 0.2 (0.0-0.5) mg/dL AST 36 H (12-35) U/L ALT 21 (4-35) U/L Alkaline Phosphatase 111 (40-150) U/L Troponin I 2.39 H* (0.01-0.04) ng/mL C-Reactive Protein < 0.5 L (0.5-1.0) mg/dL Total Protein 7.1 (6.0-8.3) g/dL Albumin 4.2 (3.3-5.0) g/dL Procalcitonin 0.05 (<0.50) ng/mL SARS-CoV-2 (PCR) Negative SARS-CoV-2 (Negative) Influenza Type A (PCR) Negative PCR FLU A (Negative) Influenza Type B (PCR) Negative PCR FLU B (Negative) POC Troponin I 2.14 H (0.01-0.04) ng/ml 03/19/25 03/20/25 Range/Units Unknown 00:05 WBC (4.50-11.00) K/uL RBC (4.00-5.20) m/uL Hgb (12.0-16.0) gm/dL Hct (33.0-51.0) % MCV (80-100) fL MCH (26-34) pg MCHC (32-36) gm/dL RDW Coeff of Edda (11.5-15.5) % Plt Count (140-440) K/uL Neut % (Auto) (42.0-72.0) % Lymph % (Auto) (20-44) % [place] % (Auto) (0.0-11.0) % Eos % (Auto) (0.0-7.0) % Baso % (Auto) (0.0-3.0) % Neut # (Auto) (1.7-7.0) K/uL Lymph # (Auto) (0.90-2.90) K/uL [place] # (Auto) (0.00-0.90) K/UL Eos # (Auto) (0.00-0.50) K/uL Baso # (Auto) (0.00-0.30) K/uL Abs Immat Gran (auto) (0.00-0.30) K/uL Imm/Tot Granulo (auto) % ESR (2-20) mm/hr INR 0.90 L (0.91-1.10) APTT 27 (23-33) Seconds D-Dimer Quant (PE/DVT) (0.00-0.50) ug/ml Sodium (135-149) mmol/L Potassium (3.6-5.1) mmol/L Chloride (96-114) mmol/L Carbon Dioxide (20-32) mmol/L Anion Gap (7-15) mEq/L BUN (7-30) mg/dL Creatinine (0.5-1.5) mg/dL Estimated Creat Clear Estimated GFR ml/min Glucose (60-115) mg/dL Lactate (0.5-1.9) mmol/L Calcium (8.4-10.6) mg/dL Total Bilirubin (0.1-1.5) mg/dL Direct Bilirubin (0.0-0.5) mg/dL AST (12-35) U/L ALT (4-35) U/L Alkaline Phosphatase (40-150) U/L Troponin I (0.01-0.04) ng/mL C-Reactive Protein (0.5-1.0) mg/dL Total Protein (6.0-8.3) g/dL Albumin (3.3-5.0) g/dL Procalcitonin (<0.50) ng/mL SARS-CoV-2 (PCR) (Negative) Influenza Type A (PCR) (Negative) Influenza Type B (PCR) (Negative) POC Troponin I 2.27 H (0.01-0.04) ng/ml Imaging Data Chest x-ray: Attestation: I have reviewed the pertinent imaging results. Radiologist's impression: Technique: Two views of the chest Comparison: None Findings/Impression: Suspected basilar scarring with no acute cardiopulmonary process detected. ECG Data Attestation: I personally reviewed and interpreted this ECG as follows: Discharge Plan Discharge Clinical Impression: Non-ST elevation MT (NSTEMI) Patient Disposition: [facility] Condition: Guarded Prescriptions: No Action metformin 500 mg tablet PO torsemide 5 mg tablet 5 mg PO DAILY atorvastatin 40 mg tablet 40 mg PO DAILY lisinopril 40 mg tablet 40 mg PO DAILY pioglitazone 15 mg tablet 15 mg PO DAILY Ozempic 2 mg/dose (8 mg/3 mL) pen injector 2 mg subcut docusate sodium [Colace] 100 mg capsule 100 mg PO QDAY multivitamin [Multiple Vitamins] Tablet 1 tab PO QDAY psyllium husk [Metamucil] 0.4 gram capsule 0.4 g PO QDAY magnesium oxide 400 mg magnesium tablet 400 mg PO QDAY aspirin 325 mg tablet 325 mg PO QDAY oxycodone 5 mg tablet 5 mg PO Q4-8H PRN (Reason: pain) Qty: 5 0RF Stand Alone Forms: MyHealth Info Instructions
[2025-03-19 21:44] LABS: Lactate* 1.4 mmol/L (0.5-1.9)
[2025-03-19 21:58] LABS: Troponin, Point-of-Care* 2.14 ng/ml (0.01-0.04)
[2025-03-19 21:58] LABS: Hematocrit* 38.0 % (33.0-51.0); Hemoglobin* 12.8 gm/dL (12.0-16.0); Immature Granulocytes Pct Auto 1.1 %; Mean Corpuscular HGB Conc 34 gm/dL (32-36); Mean Corpuscular Hemoglobin 31 pg (26-34); Mean Corpuscular Volume 92 fL (80-100); RDW Coefficient of Variation % 12.0 % (11.5-15.5); Red Blood Count* 4.15 m/uL (4.00-5.20); White Blood Count* 11.04 K/uL (4.50-11.00)
[2025-03-19 22:00] LABS: Albumin* 4.2 g/dL (3.3-5.0); Chloride* 94 mmol/L (96-114); Sodium* 131 mmol/L (135-149)
[2025-03-19 22:01] LABS: Potassium* 5.1 mmol/L (3.6-5.1)
[2025-03-19 22:03] LABS: Alanine Aminotransferase* 21 U/L (4-35); Alkaline Phosphatase* 111 U/L (40-150); Anion Gap 7 mEq/L (7-15); Aspartate Amino Transferase* 36 U/L (12-35); Bilirubin Direct* 0.2 mg/dL (0.0-0.5); Bilirubin Total* 0.3 mg/dL (0.1-1.5); Blood Urea Nitrogen* 20 mg/dL (7-30); Carbon Dioxide* 30 mmol/L (20-32); Creatinine* 0.8 mg/dL (0.5-1.5); Est. Creatinine Clearance* 43.74; Estimated Glomerular Filt Rate 77 ml/min; Total Protein* 7.1 g/dL (6.0-8.3)
[2025-03-19 22:04] LABS: Calcium* 9.3 mg/dL (8.4-10.6); Glucose* 260 mg/dL (60-115)
[2025-03-19 22:05] LABS: Immature Granulocytes Abs Auto 0.10 K/uL (0.00-0.30); Lymphocytes Absolute Auto 1.50 K/uL (0.90-2.90); Slide Review Reflex No
[2025-03-19] MEDS: NITROGLYCERIN 0.4 MG TAB.SUBL SUBLINGUAL ×2 (22:06→22:27)
[2025-03-19 22:13] LABS: D Dimer Quantitative* 0.17 ug/ml (0.00-0.50)
[2025-03-19 22:18] LABS: PCR FLU A Negative PCR FLU A (Negative); PCR FLU B Negative PCR FLU B (Negative); SARS PCR* Negative SARS-CoV-2 (Negative)
[2025-03-19 22:20] LABS: Procalcitonin* 0.05 ng/mL (<0.50)
[2025-03-19] MEDS: ASPIRIN 81 MG TAB.CHEW 324 MG PO (22:21)
[2025-03-19] MEDS: HEPARIN 5,000 UNIT/0.5 ML INJ 4000 UNIT IVP (22:22)
[2025-03-19] MEDS: HEPARIN 25,000 UNIT/500 ML BAG 18 UNIT IV (22:27)
[2025-03-19 22:32] LABS: INR 0.90 (0.91-1.10); Prothrombin Time 12.9 Seconds
[2025-03-19 22:43] LABS: Erythrocyte SedimentationRate* 6 mm/hr (2-20)
[2025-03-19] MEDS: NITROGLYCERIN/DEXTROSE 25,000 MCG/250 ML BOTTLE 6 MCG IVPB (23:10)
[2025-03-20 00:01] VITALS: BP 125/81; PULSE 79; RESP 12; O2SAT 98
[2025-03-20 00:07] LABS: Troponin, Point-of-Care* 2.27 ng/ml (0.01-0.04)
[2025-03-20 00:24] VITALS: BP 143/78; PULSE 85; RESP 16; O2SAT 99
[2025-03-20 00:31] VITALS: BP 129/70; PULSE 83; RESP 18; O2SAT 100
[2025-03-20 00:41] VITALS: BP 132/76; PULSE 82; RESP 13; O2SAT 99
== END 2025-03-20 01:21 | disposition short-term general hospital (02) ==
PROVIDERS: Emergency Provider Family Medicine; PCP Family Medicine
DX: I21.4 Non-ST elevation (NSTEMI) myocardial infarction (principal)
CPT/HCPCS: 36415; 71046; 80048; 80076; 82565; 83605; 84145; 84484; 85025; 85379; 85610; 85651; 85730; 86140; 87631; 93005; 99285; 99291; A9270; J1644

== ENCOUNTER 2025-03-20 00:38 | Outpatient (CLI) | payer MEDICARE, BC, SELFPAY | END 2025-03-20 00:39 | disposition home or self-care (01) | LOC: AMB 03-21 11:11 | PROVIDERS: PCP Family Medicine; Visit Provider Family Medicine | DX: I21.4 Non-ST elevation (NSTEMI) myocardial infarction (principal) | CPT/HCPCS: A0425; A0434 ==